=== PATIENT | male | born 1955 | race Caucasian/White ===

== ENCOUNTER 2021-08-23 07:18 | Day surgery (SDC) | payer OTHER, SELFPAY ==
[2021-08-19 14:31] LABS: BASOPHILS % (AUTO) 0.7 % (0.0-2.0); EOSINOPHILS % (AUTO) 0.4 % (0.0-4.0); HEMATOCRIT 40.7 % (36-54); LYMPHOCYTES # (AUTO) 1.4 K/uL (1.0-5.5); LYMPHOCYTES % (AUTO) 29.4 % (20.5-51.5); MEAN CORPUSCULAR HEMOGLOBIN 34 pg (27-31); MEAN CORPUSCULAR HGB CONC 34 % (32-36); MEAN CORPUSCULAR VOLUME 98 fL (79.0-98.0); MONOCYTES # (AUTO) 0.7 K/uL (0.0-1.0); MONOCYTES % (AUTO) 14.6 % (1.7-9.3); NEUTROPHILS # (AUTO) 2.7 K/uL (1.8-7.7); NEUTROPHILS % (AUTO) 54.9 % (40.0-70.0); PLATELET COUNT (AUTO) 163 K/uL (130-430); RED BLOOD CELL COUNT(AUTO) 4.14 MIL/uL (4.2-6.2); RED CELL DISTRIBUTION WIDTH 12.4 % (9.0-15.0); WHITE BLOOD COUNT (AUTO) 4.8 K/uL (4.8-10.8)
[~2021-08-23] VITALS: Ht 170.2 cm; Wt 72.6 kg
[~2021-08-23 07:18] MED LIST: CEFAZOLIN 2 GM IVPB PREMIX 50 ML IV ONE
[2021-08-23 09:22] LABS: CALCIUM 8.9 mg/dL (8.4-11.0); CREATININE 0.9 mg/dL (0.55-1.30)
[2021-08-23] MEDS ORDERED: HYDROmorphone 2 MG/ML VIAL IVP PRN (10:30)
[2021-08-23] MEDS ORDERED: HYDROmorphone 1 MG/ML INJ. CARTRIDGE IVP PRN ×2 (10:30)
[2021-08-23] MEDS ORDERED: ONDANSETRON HCL 4 MG/2 ML VIAL IVP PRN (10:30)
[2021-08-23] MEDS ORDERED: LIDOCAINE/EPI 1% 1:100000 20 ML VIAL INJ ONE (12:37)
[2021-08-23] MEDS ORDERED: DEXAMETHASONE SOD PHOSPHATE 4 MG/ML VIAL ONE (12:37)
[2021-08-23] MEDS ORDERED: METOCLOPRAMIDE HCL 10 MG/2 ML VIAL ONE (12:37)
[2021-08-23] MEDS ORDERED: fentaNYL CITRATE/PF 100 MCG/2 ML AMP ONE (12:37)
[2021-08-23] MEDS ORDERED: BUPIVACAINE /EPINEPHRINE/PF 0.5% 30 ML VIAL INJ ONE (12:37)
[2021-08-23] MEDS ORDERED: PROPOFOL 200MG/ 20ML VIAL (DIPRIVAN) IV ONE (12:37)
[2021-08-23] MEDS ORDERED: NS IRRIG SOLN 1000 ML IR ONE (12:37)
[2021-08-23] MEDS ORDERED: LR 1,000 ML IV.SOLN IV ONE (12:37)
[2021-08-23] MEDS ORDERED: DESFLURANE 15 MIN GAS INH ONE (12:37)
[2021-08-23] MEDS ORDERED: HYDROmorphone 2 MG/ML VIAL ONE (12:37)
[2021-08-23] MEDS ORDERED: ROCURONIUM BROMIDE 10 MG/ML (ZEMURON) ONE (12:37)
[2021-08-23] MEDS ORDERED: SUCCINYLCHOLINE CHLORIDE 20 MG/ML(QUELICIN) ONE (12:37)
[2021-08-23] MEDS ORDERED: KETOROLAC TROMETHAMINE 30 MG VIAL ONE (12:37)
[2021-08-23] MEDS ORDERED: SUGAMMADEX SODIUM 200 MG/2 ML VIAL IV ONE (12:37)
[2021-08-23] MEDS ORDERED: ONDANSETRON HCL 4 MG/2 ML VIAL ONE (12:37)
[2021-08-23 15:28] VITALS: BP_SYST 148
== END 2021-08-23 15:30 | disposition home or self-care (01) ==
LOC: SDS 07:18 → SMU 07:20 → SDS 15:30
PROVIDERS: ATTEND Surgery
DX: K40.91 Unilateral inguinal hernia, without obstruction or gangrene, recurrent (principal); D17.39 Benign lipomatous neoplasm of skin and subcutaneous tissue of other sites; Z20.822 Contact with and (suspected) exposure to COVID-19; Z79.899 Other long term (current) drug therapy
CPT/HCPCS: 36415; 71046-TC; 80048; 85025; 88304; 88311; 93005; C1781; J0330; J0690; J1100; J1170; J1885; J2405; J2704; J2765; J3010; J3490; J7120; U0003